=== PATIENT | female | born 1950 | race Native Hawaiian/Other Pacific Islander ===

== ENCOUNTER 2023-02-24 19:40 | Emergency (ER) | payer OTHER ==
[~2023-02-24] VITALS: Ht 162.6 cm; Wt 77.1 kg
[2023-02-24 19:44] VITALS: TEMP 98.4
[2023-02-24 20:15] LABS: PLATELET COUNT 201 K/uL (152-353)
[2023-02-24 20:29] LABS: POTASSIUM 3.6 mmol/L (3.6-5.2)
[2023-02-24 21:20] VITALS: BP 121/96
[2023-02-24] MEDS ORDERED: CELEBREX200 MG PO (22:12)
[2023-02-24] MEDS ORDERED: CETIRIZINE HYDR10 MG PO (22:13)
[2023-02-24] MEDS ORDERED: CITALOPRAM40 M1 PO (22:14)
[2023-02-24] MEDS ORDERED: CIPROFLOXACIN500 M1 PO (22:14)
[2023-02-24] MEDS ORDERED: DONE5TAB PO ×2 (22:15→22:16)
[2023-02-24] MEDS ORDERED: ESOMEPRAZOLE MA40 MG PO (22:16)
[2023-02-24] MEDS ORDERED: OLANZAPINE10 M2 PO (22:17)
[2023-02-24] MEDS ORDERED: CLARITIN10 M1 PO (22:18)
[2023-02-24] MEDS ORDERED: K-TABS10 MEQ PO (22:18)
[2023-02-24] MEDS ORDERED: DIAZ2TAB PO (22:25)
[2023-02-24] MEDS ORDERED: DICYCLOMINE HYD10 MG PO (22:26)
[2023-02-24] MEDS ORDERED: NORCO 10/325***1 TAB PO (22:26)
[2023-02-24] MEDS ORDERED: TIZANIDINE HYDRO4 MG PO (22:28)
[2023-03-11] MEDS ORDERED: CELE100C2 PO (11:57)
[2023-03-11] MEDS ORDERED: CETI10TA PO (11:58)
[2023-03-11] MEDS ORDERED: DICYCLOMINE HYD20 MG PO (11:58)
[2023-03-11] MEDS ORDERED: OLANZAPINE10 MG PO (11:59)
[2023-03-11] MEDS ORDERED: ESCI10TA PO (11:59)
[2023-03-11] MEDS ORDERED: PANTOPRAZOLE 40MG TA PO (12:00)
[2023-03-11] MEDS ORDERED: POTA10CA3 PO (12:00)
[2023-03-11] MEDS ORDERED: TIZA4TAB5 PO (12:01)
== END 2023-02-24 20:20 ==
LOC: ED 19:40
PROVIDERS: Family Medicine
DX: F32.A Depression, unspecified (principal); F41.8 Other specified anxiety disorders; R45.1 Restlessness and agitation; Z02.79 Encounter for issue of other medical certificate
CPT/HCPCS: 80053; 81002; 85027; 87635; 93005; 99283; U0003